=== PATIENT | female | born 2000 ===

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

== ENCOUNTER 2018-02-10 09:38 | Outpatient (CLI) | payer OTHER | END 2018-02-10 09:40 | disposition home or self-care (01) | LOC: EKG 09:38 | DX: R07.89 Other chest pain (principal) ==